=== PATIENT | female | born 1940 | race Caucasian/White ===

== ENCOUNTER 2023-04-24 17:53 | Emergency (ER) | payer BC ==
[~2023-04-24] VITALS: Ht 154.9 cm; Wt 59.0 kg
[2023-04-24 18:30] VITALS: BP 180/107; PULSE 108; RESP 16; TEMP 100.2; O2SAT 99
[2023-04-24 19:50] VITALS: BP 160/98; PULSE 108; RESP 16; TEMP 99; O2SAT 99
== END 2023-04-24 19:50 | disposition home or self-care (01) ==
LOC: MED 17:53
DX: R06.4 Hyperventilation (principal); F41.9 Anxiety disorder, unspecified; Z79.899 Other long term (current) drug therapy
CPT/HCPCS: 99283